=== PATIENT | female | born 1970 | race Caucasian/White ===

== ENCOUNTER 2017-05-17 10:48 | Emergency (ER) | payer SELFPAY ==
[2017-05-17 11:05] VITALS: BP 120/77; BMI 21.4
[2017-05-17 11:32] LABS: BILIRUBIN,URINE NEGATIVE (NEGATIVE); BLOOD/HEMOGLOBIN,URINE 1+ (NEGATIVE); GLUCOSE, URINE NEGATIVE (NEGATIVE); KETONES,URINE 3+ (NEGATIVE); LEUKOCYTE ESTERASE ,URINE 1+ (NEGATIVE); NITRITES,URINE NEGATIVE (NEGATIVE); PROTEIN,URINE 1+ (NEGATIVE); UROBILINOGEN,URINE NORMAL (NORMAL)
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
[2017-05-17 11:45] LABS: BASOPHILS % (AUTO) 0.5 % (0.2-1.0); EOSINOPHILS # (AUTO) 0.3 x10^3/uL (0.0-0.2); EOSINOPHILS % (AUTO) 4.7 % (0.9-2.9); HEMATOCRIT 35.6 % (36.0-47.0); HEMOGLOBIN 12.4 g/dL (12.0-16.0); LYMPHOCYTES # (AUTO) 2.1 X10^3/uL (1.3-2.9); LYMPHOCYTES % (AUTO) 29.7 % (21.0-51.0); MEAN CORPUSCULAR HEMOGLOBIN 31.8 pg (27.0-34.0); MEAN PLATELET VOLUME 8.6 fL (7.4-11.0); MONOCYTES # (AUTO) 0.4 x10^3/uL (0.3-0.8); MONOCYTES % (AUTO) 6.3 % (0.0-13.0); NEUTROPHILS # (AUTO) 4.1 x10^3/uL (2.2-4.8); NEUTROPHILS % (AUTO) 58.8 % (42.0-75.0); PLATELET COUNT 245 X10^3/uL (150.0-450.0); RED BLOOD COUNT 3.91 X10^6/uL (3.5-5.4); WHITE BLOOD COUNT 7.1 X10^3/uL (3.6-10.0)
[2017-05-17 11:46] LABS: AMORPHOUS SEDIMENT,UR 1+ /HPF (NEGATIVE); APPEARANCE,URINE SLIGHTLY HAZY (CLEAR); BACTERIA,URINE TRACE /HPF (NEGATIVE); COLOR,URINE YELLOW (YELLOW); SQUAMOUS EPITHELIAL CELL,UR MANY /HPF (NEGATIVE)
[2017-05-17 11:55] LABS: SALICYLATE 2.9 mg/dL (2.8-20); SERUM PREGNANCY TEST, QUAL NEGATIVE <10 mIU/mL
[2017-05-17 11:56] LABS: ALANINE AMINOTRANSFERASE 20 Units/L (12-78); ALBUMIN 3.7 g/dL (3.4-5.0); ALKALINE PHOSPHATASE 55 Units/L (46-116); ASPARTATE AMINO TRANSFERASE 15 Units/L (15-37); BLOOD ALCOHOL < 3 mg/dL (0-19.9); BLOOD UREA NITROGEN 18 mg/dL (7-18); CALCIUM 8.7 mg/dL (8.5-10.1); CHLORIDE 106 mmol/L (98-107); CREATININE 0.64 mg/dL (0.55-1.02); SODIUM 142 mmol/L (136-145); TOTAL PROTEIN 6.7 g/dL (6.4-8.2); eGFR BLACK RACES > 60 (>60); eGFR NON BLACK RACES > 60 (>60)
== END 2017-05-17 17:49 | disposition home or self-care (01) ==
LOC: ER 11:00
DX: Z00.8 Encounter for other general examination (principal); F19.10 Other psychoactive substance abuse, uncomplicated
CPT/HCPCS: 36415; 80053; 80307; 80320; 81001; 84703; 85025; 93005; 93010; 99284; 99285; G0434; G6038; G6039; G6040

== ENCOUNTER 2017-05-30 18:09 | Emergency (ER) | payer SELFPAY ==
[2017-05-30 18:26] VITALS: BMI 20.3
[2017-05-30 19:02] LABS: BASOPHILS # (AUTO) 0.1 X10^3/uL (0.0-0.1); EOSINOPHILS # (AUTO) 0.1 x10^3/uL (0.0-0.2); HEMATOCRIT 40.1 % (36.0-47.0); HEMOGLOBIN 14.1 g/dL (12.0-16.0); LYMPHOCYTES % (AUTO) 32.9 % (21.0-51.0); MEAN CORPUSCULAR HEMOGLOBIN 32.1 pg (27.0-34.0); MEAN CORPUSCULAR HGB CONC 35.1 g/dL (33.0-35.0); MEAN CORPUSCULAR VOLUME 91.4 fL (80.0-100.0); MEAN PLATELET VOLUME 8.4 fL (7.4-11.0); MONOCYTES # (AUTO) 0.4 x10^3/uL (0.3-0.8); MONOCYTES % (AUTO) 7.2 % (0.0-13.0); NEUTROPHILS # (AUTO) 3.5 x10^3/uL (2.2-4.8); NEUTROPHILS % (AUTO) 57.9 % (42.0-75.0); PLATELET COUNT 412 X10^3/uL (150.0-450.0); RED BLOOD COUNT 4.39 X10^6/uL (3.5-5.4); RED CELL DISTRIBUTION WIDTH 13.3 % (11.6-16.5)
[2017-05-30 19:06] LABS: BILIRUBIN,URINE NEGATIVE (NEGATIVE); BLOOD/HEMOGLOBIN,URINE 5+ (NEGATIVE); GLUCOSE, URINE NEGATIVE (NEGATIVE); KETONES,URINE 2+ (NEGATIVE); LEUKOCYTE ESTERASE ,URINE 1+ (NEGATIVE); NITRITES,URINE NEGATIVE (NEGATIVE); PROTEIN,URINE 1+ (NEGATIVE); UROBILINOGEN,URINE NORMAL (NORMAL)
[2017-05-30 19:11] LABS: SALICYLATE 4.2 mg/dL (2.8-20)
[2017-05-30 19:21] LABS: ALANINE AMINOTRANSFERASE 21 Units/L (12-78); ALBUMIN 4.1 g/dL (3.4-5.0); ALKALINE PHOSPHATASE 78 Units/L (46-116); ASPARTATE AMINO TRANSFERASE 16 Units/L (15-37); BLOOD ALCOHOL < 3 mg/dL (0-19.9); BLOOD UREA NITROGEN 5 mg/dL (7-18); CARBON DIOXIDE 25.7 mmol/L (21-32); CHLORIDE 104 mmol/L (98-107); COR NA(FOR HYPERGLY) 140 mmol/L (136-145); CREATININE 0.77 mg/dL (0.55-1.02); SODIUM 140 mmol/L (136-145); TOTAL PROTEIN 7.8 g/dL (6.4-8.2); eGFR BLACK RACES > 60 (>60); eGFR NON BLACK RACES > 60 (>60)
[2017-05-30 19:24] LABS: APPEARANCE,URINE CLEAR (CLEAR); BACTERIA,URINE TRACE /HPF (NEGATIVE); COLOR,URINE YELLOW (YELLOW); MUCUS,URINE NUMEROUS /HPF (NEGATIVE); SQUAMOUS EPITHELIAL CELL,UR MODERATE /HPF (NEGATIVE)
[2017-05-30 21:23] VITALS: BP 119/73
[2017-05-30 22:07] LABS: CKMB % 2.2 % (<4); CREATINE KINASE 45 Units/L (26-192); CREATINE KINASE MB < 1.0 ng/mL (0-4.0); TROPONIN I < 0.02 ng/mL (0-1.5)
--- NOTE | 2017-05-30 22:25 | DR.PSYCH ---
HPI - Time Seen Time seen: 18:50 - PCP Primary Care Physician: NFD - Complaint Chief Complaint:: PT. HAVING VISUAL HALLUNICATIONS. PT. STATES "I THINK I HAVE TOO MANY ELECTROLYTES IN MY BODY. MY EYES HAVE BEEN GIVING ME A FIT AND IF YOU LOOK INTO THE HEADLIGHTS FOR A LONG TIME, IT WILL MESS YOU UP. I NEED TO GET SOME OUT BEFORE MY BRAIN TURNS TO MUSH." PT. ADMITS TO USING METHAMPHEATIME THIS MORNING WELL YESTERDAY. - Source History Provided: Patient, EMS - Mode of Arrival Mode of Arrival: EMS - Timing Onset of Chief Complaint: 05/30/17 PMH - PMH Past Medical History: Yes Past Medical History: Anxiety, Depression Past Surgical History: Yes Surgical History: Ortho Surgery - Family History History of Family Medical Conditions: No - Social History Does patient currently use any type of tobacco product: No Have you used tobacco products in the last 12 months: No Type of Tobacco Use: None Does any household member use tobacco: No Alcohol Use: Occasionally Do you use any recreational Drugs:: Yes (METH) Lives With: Alone Lives Where: Home - infectious screening In the last 2 months have you had wt loss of >10#?: NO Have you had fever, night sweats or hemotysis?: No Have you traveled outside the country in the last 6 months?: No Isolation: Standard ROS - Review of Systems Eyes: No Symptoms Reported ENTM: No Symptoms Reported Respiratoy: No Symptoms Reported Cardiovascular: No Symptoms Reported Gastrointestinal/Abdominal: No Symptoms Reported Genitourinary: No Symptoms Reported Neurological: No Symptoms Reported Musculoskeletal: No Symptoms Reported Integumentary: No Symptoms Reported Hematologic/Lymphatic: No Symptoms Reported Endocrine: No Symptoms Reported Psychiatric: No Symptoms Reported All Other Systems: Reviewed and Negative PE - Vitals Vitals: Temperature 98.4 F Pulse Rate [Left Brachial] 95 Pulse Rate 101 Respiratory Rate 16 Blood Pressure [Left Arm] 119/73 Blood Pressure 130/86 O2 Sat by Pulse Oximetry 98 - General General Appearance: Alert, In No Apparent Distress - Head Head Exam: Normal Inspection, Atraumatic - Eyes Eye exam: Normal Appearance, PERRL, EOMI Pupils: Regular, Round: Bilateral Sclera/Conjunctival: Normal Inspection: Bilateral - ENT ENT Exam: Normal Exam, Normal Oropharynx - Neck Neck Exam: Normal Inspection, Full ROM - Chest Chest Inspection: Normal Inspection, Symmetric Chest Wall Rise - Respiratory Respiratory Exam: Normal Lung Sounds Bilat Respiratory Exam: Bilateral Clear to Auscultation - Cardiovascular Cardiovascular Exam: Regular Rate, Normal Rhythm - Abdominal Exam Abdominal Exam: Normal Inspection, Normal Bowel Sounds Abdominal Tenderness: negative: RUQ, RLQ, LUQ, LLQ, Epigastrium, Suprapubic, Diffuse, Mild, Moderate, Severe, Other - Extremities Extremities Exam: Normal Inspection, Full ROM - Back Back Exam: Normal Inspection, Full ROM - Neurologic Neurological Exam: Alert, Oriented X3, CN II-XII Intact Patient Oriented To: Person, Place, Time Speech: Fluid Speech Cranial Nerve Exam: EOM Function (II, III, IV, ): Normal Cerebellar Function: Finger to Nose: Normal Cerebellar Function: Normal Gait Motor Strength - LUE: 3/5 Motor Strength - RUE: 3/5 Motor Strength - LLE: 3/5 - Psychiatric Psychiatric Exam: Normal Affect, Normal Mood Expanded Psychiatric Exam: Poor Eye Contact - Skin Skin Exam: Warm, Dry, Intact Course - Treatment Treatment: Patient evaluated by mental health and decided to give her an outpaitient appointment for follow up with jeffrey in the morning. - Reevaluation 2nd: Unchanged ROR - Labs Reviewed Result Diagrams: 05/30/17 18:33 05/30/17 21:39 Laboratory: WBC 6.0 X10^3/uL (3.6-10.0) 05/30/17 18:33 RBC 4.39 X10^6/uL (3.5-5.4) 05/30/17 18:33 Hgb 14.1 g/dL (12.0-16.0) 05/30/17 18:33 Hct 40.1 % (36.0-47.0) 05/30/17 18:33 MCV 91.4 fL (80.0-100.0) 05/30/17 18:33 MCH 32.1 pg (27.0-34.0) 05/30/17 18:33 MCHC 35.1 g/dL (33.0-35.0) H 05/30/17 18:33 RDW 13.3 % (11.6-16.5) 05/30/17 18:33 Plt Count 412 X10^3/uL (150.0-450.0) 05/30/17 18:33 MPV 8.4 fL (7.4-11.0) 05/30/17 18: Neut % 57.9 % (42.0-75.0) 05/30/17 18: Lymph % 32.9 % (21.0-51.0) 05/30/17 18:33 [place] % 7.2 % (0.0-13.0) 05/30/17 18: Eos % 1.0 % (0.9-2.9) 05/30/17 18: Baso % 1.0 % (0.2-1.0) 05/30/17 18: Neut # 3.5 x10^3/uL (2.2-4.8) 05/30/17 18: Lymph # 2.0 X10^3/uL (1.3-2.9) 05/30/17 18: [place] # 0.4 x10^3/uL (0.3-0.8) 05/30/17 18: Eos # 0.1 x10^3/uL (0.0-0.2) 05/30/17 18: Baso # 0.1 X10^3/uL (0.0-0.1) 05/30/17 18: Absolute Nucleated RBC 0.3 /100WBC 05/30/17 18:33 Sodium 140 mmol/L (136-145) 05/30/17 18:33 Corrected Sodium 140 mmol/L (136-145) 05/30/17 18:33 Potassium 3.5 mmol/L (3.5-5.1) 05/30/17 21:39 Chloride 104 mmol/L (98-107) 05/30/17 18:33 Carbon Dioxide 25.7 mmol/L (21-32) 05/30/17 18:33 BUN 5 mg/dL (7-18) L 05/30/17 18:33 Creatinine 0.77 mg/dL (0.55-1.02) 05/30/17 18:33 Est GFR (MDRD) Af Amer > 60 (>60) 05/30/17 18:33 Est GFR (MDRD) Non-Af > 60 (>60) 05/30/17 18:33 Glucose 111 mg/dL (65-99) H 05/30/17 18:33 Calcium 9.0 mg/dL (8.5-10.1) 05/30/17 18:33 Corrected Calcium TNP 05/30/17 18:33 Total Bilirubin 0.30 mg/dL (0.2-1.0) 05/30/17 18:33 AST 16 Units/L (15-37) 05/30/17 18:33 ALT 21 Units/L (12-78) 05/30/17 18:33 Alkaline Phosphatase 78 Units/L (46-116) 05/30/17 18:33 Creatine Kinase 45 Units/L (26-192) 05/30/17 21:39 CK-MB (CK-2) < 1.0 ng/mL (0-4.0) 05/30/17 21:39 CK/CKMB % Calc 2.2 % (<4) 05/30/17 21:39 Troponin I < 0.02 ng/mL (0-1.5) 05/30/17 21:39 Total Protein 7.8 g/dL (6.4-8.2) 05/30/17 18: Albumin 4.1 g/dL (3.4-5.0) 05/30/17 18: Globulin 3.7 g/dL (2.5-4.5) 05/30/17 18: Albumin/Globulin Ratio 1.1 Ratio (1.1-2.1) 05/30/17 18:33 Specimen Type Clean catch urine 05/30/17 18:32 Urine Color Yellow (YELLOW) 05/30/17 18:32 Urine Appearance Clear (CLEAR) 05/30/17 18: Urine pH 5.0 (5.0 - 8.0) 05/30/17 18:32 Ur Specific [place] 1.025 (1.000-1.030) 05/30/17 18:32 Urine Protein 1+ (NEGATIVE) 05/30/17 18: Urine Glucose (UA) Negative (NEGATIVE) 05/30/17 18: Urine Ketones 2+ (NEGATIVE) 05/30/17 18:32 Urine Occult Blood 5+ (NEGATIVE) 05/30/17 18:32 Urine Nitrite Negative (NEGATIVE) 05/30/17 18: Urine Bilirubin Negative (NEGATIVE) 05/30/17 18: Urine Urobilinogen Normal (NORMAL) 05/30/17 18:32 Ur Leukocyte Esterase 1+ (NEGATIVE) 05/30/17 18:32 Urine RBC 10-15 /HPF (NEGATIVE) 05/30/17 18:32 Urine WBC 0-4 /HPF (NEGATIVE) 05/30/17 18:32 Ur Squamous Epith Cells Moderate /HPF (NEGATIVE) 05/30/17 18:32 Urine Bacteria Trace /HPF (NEGATIVE) 05/30/17 18:32 Urine Mucus Numerous /HPF (NEGATIVE) 05/30/17 18:32 Ur Culture Indicated? No/not indicated 05/30/17 18:32 Salicylates 4.2 mg/dL (2.8-20) 05/30/17 18:33 Urine Opiates Screen Negative (NEG=<300) 05/30/17 18:32 Urine Methadone Screen Negative (NEG=<300) 05/30/17 18:32 Acetaminophen 0.0 ug/mL (10-30) L 05/30/17 18:33 Ur Barbiturates Screen Negative (NEG=<200) 05/30/17 18:32 Ur Phencyclidine Scrn Negative (NEG=<25) 05/30/17 18:32 Ur Amphetamines Screen Negative (NEG=<1000) 05/30/17 18:32 U Benzodiazepines Scrn Negative (NEG=<200) 05/30/17 18:32 Urine Cocaine Screen Negative (NEG=<300) 05/30/17 18:32 U Marijuana (THC) Screen Negative (NEG=<50) 05/30/17 18:32 Ethyl Alcohol mg/dL < 3 mg/dL (0-19.9) 05/30/17 18:33 - Diagnosis Discharge Problem: Non-suicidal self-harm, non homocidal - Discharge Plan Condition: Stable - Follow ups/Referrals Follow ups/Referrals: NFD,None [Primary Care Provider] - 3 days - Instructions
== END 2017-05-30 22:28 | disposition home or self-care (01) ==
LOC: ER 18:11
DX: F91.9 Conduct disorder, unspecified (principal)
CPT/HCPCS: 36415; 80053; 80307; 80320; 81001; 82550; 82553; 84132; 84484; 85025; 93005; 93010; 99283; 99285; G0434; G6038; G6039; G6040